=== PATIENT | female | born 1955 | race Caucasian/White ===

== ENCOUNTER → 2016-10-19 | Outpatient (CLI) | payer BC, OTHER ==
[~2016-10-19] MED LIST: ASPIRIN325 PO; AUGMENTIN 875875 MG PO; BIOTIN10000 MC1 PO; CALCIUM 600 +1 EAC1 PO; CRESTOR10 MG PO; DIPYRIDAMOLE PO; ESTRADIOL 1 MG T1 M1 PO; FISH OIL 1,001000 M2 PO; HYDROCHLOROTH12.5 M1 PO; HYDROCODONE-AP1 EAC6 PO; KLOR-CON 1010 MEQ PO; LASIX 20 MG TAB20 MG PO; METHIMAZOLE5 MG PO; MOBIC15 MG PO; NF; OMEPRAZOLE40 MG PO; PROAIR HFA8.5 GM INH; PROBIOTIC1 EAC1 PO; SINGULAIR 10 MG10 M1 PO; SYMBICORT160 MCG/4. INH; VITAMIN D3400 UNIT PO; ZANTAC 150MG T150 MG PO; ZESTRIL20 MG PO; ZOFRAN ODT4 MG DISSOLVE; ZYRTEC10 MG PO
== END ==
LOC: HYPER 07:06
DX: L97.422 Non-pressure chronic ulcer of left heel and midfoot with fat layer exposed (principal); L97.412 Non-pressure chronic ulcer of right heel and midfoot with fat layer exposed; L95.0 Livedoid vasculitis; E66.01 Morbid (severe) obesity due to excess calories; I49.9 Cardiac arrhythmia, unspecified; I10 Essential (primary) hypertension; G47.30 Sleep apnea, unspecified; Z86.718 Personal history of other venous thrombosis and embolism; Z87.891 Personal history of nicotine dependence

== ENCOUNTER → 2017-01-11 | Outpatient (CLI) | payer BC, OTHER | LOC: HYPER 07:11 | DX: T81.89XD Other complications of procedures, not elsewhere classified, subsequent encounter (principal); S31.109D Unspecified open wound of abdominal wall, unspecified quadrant without penetration into peritoneal cavity, subsequent encounter; E66.01 Morbid (severe) obesity due to excess calories; L95.0 Livedoid vasculitis; I10 Essential (primary) hypertension; Z86.718 Personal history of other venous thrombosis and embolism; Y83.8 Other surgical procedures as the cause of abnormal reaction of the patient, or of later complication, without mention of misadventure at the time of the procedure ==

== ENCOUNTER → 2017-02-01 | Outpatient (CLI) | payer BC, OTHER | LOC: HYPER 07:05 | DX: T81.89XD Other complications of procedures, not elsewhere classified, subsequent encounter (principal); E66.01 Morbid (severe) obesity due to excess calories; I49.9 Cardiac arrhythmia, unspecified; I10 Essential (primary) hypertension; Z86.718 Personal history of other venous thrombosis and embolism; Z90.710 Acquired absence of both cervix and uterus; Z72.89 Other problems related to lifestyle; Y83.8 Other surgical procedures as the cause of abnormal reaction of the patient, or of later complication, without mention of misadventure at the time of the procedure ==

== ENCOUNTER → 2017-06-13 | Outpatient (CLI) | payer BC, OTHER | LOC: HYPER 03-03 07:19 | DX: L97.511 Non-pressure chronic ulcer of other part of right foot limited to breakdown of skin (principal); L97.321 Non-pressure chronic ulcer of left ankle limited to breakdown of skin; L95.9 Vasculitis limited to the skin, unspecified; R73.03 Prediabetes; R60.0 Localized edema; R60.9 Edema, unspecified; I10 Essential (primary) hypertension; Z86.718 Personal history of other venous thrombosis and embolism; Z90.710 Acquired absence of both cervix and uterus; Z87.891 Personal history of nicotine dependence ==

== ENCOUNTER → 2017-06-27 | Outpatient (CLI) | payer BC, OTHER | LOC: HYPER 07:50 | DX: L97.511 Non-pressure chronic ulcer of other part of right foot limited to breakdown of skin (principal); L97.321 Non-pressure chronic ulcer of left ankle limited to breakdown of skin; L95.9 Vasculitis limited to the skin, unspecified; R73.03 Prediabetes; R60.0 Localized edema; I10 Essential (primary) hypertension; Z86.718 Personal history of other venous thrombosis and embolism; Z90.710 Acquired absence of both cervix and uterus; Z72.89 Other problems related to lifestyle ==

== ENCOUNTER → 2017-07-11 | Outpatient (CLI) | payer BC, OTHER | LOC: HYPER 07:00 | DX: L97.511 Non-pressure chronic ulcer of other part of right foot limited to breakdown of skin (principal); L97.321 Non-pressure chronic ulcer of left ankle limited to breakdown of skin; L95.9 Vasculitis limited to the skin, unspecified; Z86.718 Personal history of other venous thrombosis and embolism; I10 Essential (primary) hypertension; G47.30 Sleep apnea, unspecified; Z90.710 Acquired absence of both cervix and uterus ==

== ENCOUNTER → 2017-07-25 | Outpatient (CLI) | payer BC, OTHER | LOC: HYPER 06:58 | DX: L97.512 Non-pressure chronic ulcer of other part of right foot with fat layer exposed (principal); L95.9 Vasculitis limited to the skin, unspecified; R73.03 Prediabetes; R60.0 Localized edema; I10 Essential (primary) hypertension; Z86.718 Personal history of other venous thrombosis and embolism; Z90.710 Acquired absence of both cervix and uterus; Z72.89 Other problems related to lifestyle ==

== ENCOUNTER → 2017-09-19 | Outpatient (CLI) | payer BC, OTHER | LOC: HYPER 06:44 | DX: L97.512 Non-pressure chronic ulcer of other part of right foot with fat layer exposed (principal); L97.421 Non-pressure chronic ulcer of left heel and midfoot limited to breakdown of skin; L95.9 Vasculitis limited to the skin, unspecified; I49.9 Cardiac arrhythmia, unspecified; I10 Essential (primary) hypertension; G47.30 Sleep apnea, unspecified; Z86.718 Personal history of other venous thrombosis and embolism; Z90.710 Acquired absence of both cervix and uterus; Z87.891 Personal history of nicotine dependence ==

== ENCOUNTER → 2017-12-26 | Outpatient (CLI) | payer BC, OTHER | LOC: HYPER 06:50 | DX: L97.512 Non-pressure chronic ulcer of other part of right foot with fat layer exposed (principal); L95.9 Vasculitis limited to the skin, unspecified; R73.03 Prediabetes; R60.0 Localized edema; F06.4 Anxiety disorder due to known physiological condition; I10 Essential (primary) hypertension; Z86.718 Personal history of other venous thrombosis and embolism; Z90.710 Acquired absence of both cervix and uterus; Z72.89 Other problems related to lifestyle ==